=== PATIENT | male | born 1985 | race Caucasian/White ===

== ENCOUNTER 2018-01-10 11:25 | Emergency (ER) | payer MEDICAID, OTHER ==
[~2018-01-10] VITALS: Ht 177.8 cm; Wt 101.2 kg
[~2018-01-10 11:25] MED LIST: None at this time
[2018-01-10 11:40] VITALS: BP 132/85
[2018-01-10] MEDS ORDERED: KETOROLAC 30 MG/1 ML IM ONE (12:30)
[2018-01-10] MEDS ORDERED: KETOROLAC 30 MG/1 ML ONE (12:41)
== END 2018-01-10 13:57 | disposition short-term general hospital (02) ==
LOC: ED 13:05
DX: S22.42XA Multiple fractures of ribs, left side, initial encounter for closed fracture (principal); J93.83 Other pneumothorax; J94.2 Hemothorax; Z87.891 Personal history of nicotine dependence; V87.8XXA Person injured in other specified noncollision transport accidents involving motor vehicle (traffic), initial encounter; Y93.89 Activity, other specified; Y92.488 Other paved roadways as the place of occurrence of the external cause; Y99.8 Other external cause status
CPT/HCPCS: 71101; 93005; 96372; 99285; J1885